=== PATIENT | male | born 1990 | race Two or more races ===

== ENCOUNTER 2024-04-24 13:51 | Emergency (ER) | payer BC ==
[~2024-04-24] VITALS: Ht 180.3 cm; Wt 132.9 kg
--- NOTE | 2024-04-24 14:04 | NUR ---
patient present to ed as a walk in for abdomen pain x2 days, states he was diagnosed with H.pylori x3 weeks ago, finished a 14 day antibiotics treatment, patient resumed drinking coffee and alcohol on thursday, abdomen pain came back on thursday, alert and oriented x4, noted walking with steady gait, at bedside for mse
[2024-04-24] MEDS ORDERED: PANTOPRAZOLE SODIUM IV 40 MG in IV DEXTROSE 5% 100 ML IV ONE (14:30)
[2024-04-24] MEDS ORDERED: PANTOPRAZOLE SODIUM 40 MG VIAL ONE (14:37)
[2024-04-24] MEDS ORDERED: LORAZEPAM 2 MG/1 ML VIAL ONE (14:37)
[2024-04-24] MEDS: IV NORMAL SALINE 1000 ML BAG IV ONE (14:40)
[2024-04-24] MEDS: LORAZEPAM 2 MG/1 ML VIAL IV ONE (14:40)
[2024-04-24 14:46] LABS: CALCIUM 8.5 mg/dL (8.5-10.1); CARBON DIOXIDE 23 mmol/L (21-32); CHLORIDE 105 mmol/L (98-107); CREATININE 0.9 mg/dL (0.6-1.3); GLUCOSE 209 mg/dL (74-106); POTASSIUM 3.9 mmol/L (3.5-5.1); SODIUM SERUM 139 mmol/L (136-145); UREA NITROGEN, BLOOD 13 mg/dL (7-18)
[2024-04-24] MEDS: PANTOPRAZOLE SODIUM 40 MG VIAL IV ONE (14:47)
[2024-04-24 14:49] LABS: BASOPHILS % (AUTO) 0.5 % (0.0-2.0); EOSINOPHILS % (AUTO) 0.7 % (0.0-7.0); HEMATOCRIT 41.2 % (36.7-47.1); HEMOGLOBIN 14.2 g/dL (12.5-16.3); LYMPHOCYTES # (AUTO) 1.6 K/uL (0.8-4.8); LYMPHOCYTES % (AUTO) 26.1 % (20.5-51.5); MEAN CORPUSCULAR HEMOGLOBIN 31.3 uug (23.8-33.4); MEAN CORPUSCULAR HGB CONC 34 g/dL (32.5-36.3); MEAN CORPUSCULAR VOLUME 90.8 fL (73.0-96.2); MONOCYTES # (AUTO) 0.4 K/uL (0.1-1.30); MONOCYTES % (AUTO) 6.4 % (0.0-11.0); NEUTROPHILS % (AUTO) 66.3 % (38.5-71.5); PLATELET COUNT (AUTO) 159 K/uL (152-348); RED BLOOD CELL COUNT(AUTO) 4.54 MIL/uL (4.06-5.63); RED CELL DISTRIBUTION WIDTH 13.2 % (12.1-16.2); WHITE BLOOD COUNT (AUTO) 6.1 K/uL (3.6-10.2)
[2024-04-24 14:50] LABS: DIFFERENTIAL COMMENT 1
[2024-04-24 14:55] LABS: ALANINE AMINOTRANSFERASE 52 U/L (16-63); ALBUMIN 3.4 g/dL (3.4-5.0); ALKALINE PHOSPHATASE 71 U/L (50-136); ASPARTATE AMINOTRANSFERASE 17 U/L (15-37); BILIRUBIN,DIRECT 0.1 mg/dL (0.0-0.2); BILIRUBIN,TOTAL 0.3 mg/dL (0.2-1.0); LIPASE 56 U/L (16-77); TOTAL PROTEIN, SERUM 7.4 g/dL (6.4-8.2)
[2024-04-24] MEDS ORDERED: LORA0.5T48 PO (16:59)
[2024-04-24] MEDS ORDERED: FAMO20TA8 PO (16:59)
--- NOTE | 2024-04-24 17:15 | NUR ---
Patient discharged to home in stable condition. noted walking with steady gait, alert and oriented x4. vitals are stable, rx sent to pharmacy. Written and verbal after care instructions given. Patient verbalizes understanding of instructions. Stressed follow up or return to ER for worsening s/s.
--- NOTE | 2024-04-24 17:16 | NUR ---
instructed to note drive machinery while taking prescribed ativan Addendum: 04/24/24 at 1717 by EREN iv charlene
[2024-04-24 17:30] VITALS: BP 133/76; TEMP 97.8; O2SAT 100
== END 2024-04-24 17:32 | disposition home or self-care (01) ==
LOC: ER 13:55
DX: K29.20 Alcoholic gastritis without bleeding (principal); K21.9 Gastro-esophageal reflux disease without esophagitis; Z79.899 Other long term (current) drug therapy
CPT/HCPCS: 80076; 80048; 83690; 85025; 84484; 36415; 93005; 71045; 99285; 96361; 96374; 96375; 80320; J2060; J2470 ×2; J7040; A4606; A4663; G0480